=== PATIENT | male | born 2005 | race Caucasian/White ===

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

== ENCOUNTER 2024-01-06 05:47 | Day surgery (SDC) | payer OTHER ==
[~2024-01-06] VITALS: Ht 172.7 cm; Wt 79.7 kg
[2024-01-06] VITALS (11 sets, daily range): BP systolic 93–136; BP diastolic 61–93
[~2024-01-06 05:47] MED LIST changes: +AMOCLA875 PO; +INSULANPEN SC; +INSULIN AS100 UNIT/6
[2024-01-06] MEDS ORDERED: Ampicillin Sod/Sulbactam Sod 3 GM in NS 100 ML IV SCH (06:10)
[2024-01-06] MEDS ORDERED: Lactated Ringer's 1,000 ML IV SCH (06:10)
[2024-01-06] MEDS ORDERED: HUMALOG KW100 UNIT/1 SC (06:21)
[2024-01-06] MEDS ORDERED: IBUP200 PO (06:23)
[2024-01-06] MEDS ORDERED: Bupivacaine 0.5% HCl 5 MG/ML 30MLVIAL ONE (07:21)
[2024-01-06] MEDS ORDERED: propofoL 20 ML IV ONE (07:31)
[2024-01-06] MEDS ORDERED: Rocuronium Bromide 10 MG/ML 5ML Injection IV ONE ×2 (07:31→08:24)
[2024-01-06] MEDS ORDERED: Ketorolac Tromethamine 30mg Vial ONE (07:31)
[2024-01-06] MEDS ORDERED: Lidocaine HCl 2% 20 ML MDV ONE (07:31)
[2024-01-06] MEDS ORDERED: FentaNYL Citrate 50 MCG/ML 2 ML Injection ONE (07:31)
[2024-01-06] MEDS ORDERED: Ondansetron HCl 2 MG / ML 2ML Vial ONE (07:31)
[2024-01-06] MEDS ORDERED: FentaNYL Citrate 50 MCG/ML 2 ML Injection IV PRN (08:00)
[2024-01-06] MEDS ORDERED: Albuterol 2.5 MG/3 ML VIAL INH PRN (08:00)
[2024-01-06] MEDS ORDERED: HYDROmorphone HCl/Pf 1MG SYR IV PRN (08:05)
[2024-01-06] MEDS ORDERED: Droperidol 5 mg/2 ml Vial IV PRN (08:05)
[2024-01-06] MEDS ORDERED: HYDROmorphone HCl/Pf 1MG SYR ONE (08:45)
[2024-01-06] MEDS ORDERED: Sugammadex Sodium 200 MG/2ML SDV (100 MG/ML) ONE (09:06)
[2024-01-06] MEDS ORDERED: OxyCODONE 5 mg/Acetamin 325 mg TABLET PO PRN (09:50)
--- NOTE | 2024-01-06 10:33 | NUR ---
Patient up to Ambulate independently. Gait steady. VVS. ON RA. DRAIN SUCTIONED, DRAINING SEROUS FLUID. PT UNDERSTOOD DISCHARGE INSTRUCTIONS. SHOWED UNDERSTANDING OF OPERATION AND CARE FOR CHRIS DRAIN. EDUCATED FAMILY WELL. NO PAIN OR NAUSEA. Patient States Post-Procedure ride home has been arranged. BELONGINGS WITH PATIENT.
== END 2024-01-06 10:38 | disposition home or self-care (01) ==
LOC: ORSCMMR 05:47 → ORD 08:45 → ORSCMMR 10:38
PROVIDERS: Surgery
PROC: 0HX8XZZ Transfer Buttock Skin, External Approach (ICD-10-PCS; principal; 2024-01-06 07:30)
DX: L05.01 Pilonidal cyst with abscess (principal); E10.8 Type 1 diabetes mellitus with unspecified complications; Z79.4 Long term (current) use of insulin
CPT/HCPCS: 82947; 88304; J0295; J1170; J1885; J2405; J2704; J3010; J7120

== ENCOUNTER 2024-02-12 23:10 | Inpatient (IN) | payer OTHER ==
[~2024-02-12] VITALS: Ht 175.3 cm; Wt 77.1 kg
[~2024-02-12 23:10] MED LIST changes: +HUMALOG KW100 UNIT/1 SC; +IBUP200 PO
[2024-02-12] MEDS ORDERED: Lactated Ringer's 1,000 ML IV ONE (23:35)
[2024-02-12 23:39] LABS: BASOPHILS ABSOLUTE AUTO 0.07 K/mm3 (0.00-0.23); BASOPHILS PERCENT AUTO 0 % (0-2); EOSINOPHILS ABSOLUTE AUTO 0.01 K/mm3 (0.00-0.68); EOSINOPHILS PERCENT AUTO 0 % (0-6); Hematocrit 50.2 % (37.0-53.0); Hemoglobin 17.3 g/dL (13.5-17.5); IMMATURE GRAN PERCENT AUTO 1 % (0-1); LYMPHOCYTES ABSOLUTE AUTO 1.92 K/mm3 (0.84-5.20); LYMPHOCYTES PERCENT AUTO 10 % (21-46); MONOCYTES ABSOLUTE AUTO 0.76 K/mm3 (0.16-1.47); MONOCYTES PERCENT AUTO 4 % (4-13); Mean Corpuscular HGB 27.3 pg (26.0-34.0); Mean Corpuscular HGB Conc 34.5 g/dL (31.5-36.5); Mean Corpuscular Volume 79 fL (80-100); Mean Platelet Volume 9.2 fL (9.1-12.4); NEUTROPHILS ABSOLUTE AUTO 15.96 K/mm3 (1.96-9.15); NEUTROPHILS PERCENT AUTO 84 % (41-73); Platelet Count 401 K/mm3 (150-400); RDW Coefficient Variation 12.5 % (11.7-14.2); Red Blood Cell Count 6.34 M/mm3 (4.30-5.90); White Blood Cell Count 18.92 K/mm3 (4.00-11.30)
[2024-02-12] MEDS ORDERED: Acetaminophen 325 MG TABLET PO ONE (23:45)
[2024-02-12] MEDS ORDERED: Ondansetron HCl 2 MG / ML 2ML Vial IV ONE (23:55)
[2024-02-13] VITALS (22 sets, daily range): BP systolic 97–119; BP diastolic 43–73
[2024-02-13 00:09] LABS: Base Excess Venous -20.1 mmol/L; Bicarbonate Venous 11.6 mmol/L (24.0-30.0); PCO2 Venous 22.6 mmHg (38-42); pH Blood Venous 7.18 (7.34-7.37)
[2024-02-13 00:15] LABS: Albumin, Blood 4.8 g/dL (3.4-5.0); Albumin/Globulin Ratio 1.1 (0.8-1.8); Bun/Creatinine Ratio 18.2 (12.0-20.0); Calcium, Blood 9.5 mg/dL (8.5-10.1); Creatinine, Blood 0.99 mg/dL (0.60-1.20); Globulin, Blood 4.5 g/dL (2.2-4.0); Potassium, Blood 4.2 mmol/L (3.5-5.5); Total Protein, Blood 9.3 g/dL (6.4-8.2)
[2024-02-13] MEDS ORDERED: Lactated Ringer's 1,000 ML IV ONE (00:35)
[2024-02-13] MEDS ORDERED: D5W-1/2NS 1,000 ML IV SCH (01:30)
[2024-02-13] MEDS ORDERED: Insulin Human Regular 100 UNIT in NS 100 ML IV SCH (01:30)
[2024-02-13] MEDS ORDERED: Acetaminophen 325 MG TABLET PO PRN (01:35)
[2024-02-13] MEDS ORDERED: Prochlorperazine Edisylate 10 mg Vial IV PRN (01:35)
[2024-02-13] MEDS ORDERED: Potassium Chl 20MEQ/Water100ML 100 ML IV ONE (02:00)
[2024-02-13 04:04] LABS: BASOPHILS ABSOLUTE AUTO 0.05 K/mm3 (0.00-0.23); BASOPHILS PERCENT AUTO 0 % (0-2); EOSINOPHILS ABSOLUTE AUTO 0.03 K/mm3 (0.00-0.68); EOSINOPHILS PERCENT AUTO 0 % (0-6); Hematocrit 45.4 % (37.0-53.0); Hemoglobin 15.4 g/dL (13.5-17.5); IMMATURE GRAN ABSOLUTE AUTO 0.14 K/mm3 (0.00-0.10); IMMATURE GRAN PERCENT AUTO 1 % (0-1); LYMPHOCYTES ABSOLUTE AUTO 2.02 K/mm3 (0.84-5.20); LYMPHOCYTES PERCENT AUTO 13 % (21-46); MONOCYTES ABSOLUTE AUTO 0.46 K/mm3 (0.16-1.47); MONOCYTES PERCENT AUTO 3 % (4-13); Mean Corpuscular HGB 27.3 pg (26.0-34.0); Mean Corpuscular HGB Conc 33.9 g/dL (31.5-36.5); Mean Corpuscular Volume 81 fL (80-100); Mean Platelet Volume 9.3 fL (9.1-12.4); NEUTROPHILS ABSOLUTE AUTO 12.93 K/mm3 (1.96-9.15); NEUTROPHILS PERCENT AUTO 83 % (41-73); Platelet Count 342 K/mm3 (150-400); RDW Coefficient Variation 12.5 % (11.7-14.2); RDW Standard Deviation 36.2 fL (35.1-46.3); Red Blood Cell Count 5.64 M/mm3 (4.30-5.90); White Blood Cell Count 15.63 K/mm3 (4.00-11.30)
[2024-02-13 04:13] LABS: Base Excess Venous -21.4 mmol/L; Bicarbonate Venous 10.7 mmol/L (24.0-30.0); PCO2 Venous 24.8 mmHg (38-42); pH Blood Venous 7.12 (7.34-7.37)
[2024-02-13 05:35] LABS: Bun/Creatinine Ratio 15.6 (12.0-20.0); Calcium, Blood 8.3 mg/dL (8.5-10.1); Creatinine, Blood 0.84 mg/dL (0.60-1.20); Potassium, Blood 4.5 mmol/L (3.5-5.5)
--- NOTE | 2024-02-13 05:38 | NUR ---
SHIFT SUMMARY PT REMAINED ALERT AND ORIENTED X 4 T/O ENTIRETY OF SHIFT. ABLE TO FOLLOW COMMANDS, MAKE PURPOSEFUL MOVEMENTS, AND MAKE NEEDS KNOWN. AFEBRILE AND DENIES PAIN. CONTINOUS CARDIAC MONITORING IN PLACE SHOWING SR WITH HR IN 90'S, SBP 110'S-120'S. ON RA WITH SATURATIONS > 92%. UTILIZES BEDSIDE TOILET W/O DIFFICULTY, SBA TO GUIDE WIRES. INSULIN INFUSING AT 5 U/HR, D5 1/2NS AT 100. CARE CONTINUES.
[2024-02-13 06:06] LABS: pH Blood Venous 7.21 (7.34-7.37)
[2024-02-13 06:07] LABS: Base Excess Venous -18.3 mmol/L; Bicarbonate Venous 12.6 mmol/L (24.0-30.0); PCO2 Venous 24.3 mmHg (38-42)
[2024-02-13 08:16] LABS: Base Excess Venous -14.5 mmol/L; Bicarbonate Venous 14.6 mmol/L (24.0-30.0); PCO2 Venous 30.6 mmHg (38-42); pH Blood Venous 7.24 (7.34-7.37)
--- NOTE | 2024-02-13 08:30 | NUR ---
ASSUMED CARE / DR STROUD: REPORT RECEIVED FROM BHARTI Hartmann RN. ASSUMED CARE OF THIS PT AT APPROX 0700. ON ASSESSMENT, THE PT AWAKENS EASILY TO VERBAL STIMULI & IS ORIENTED TO ALL. TORRES, NO C/O WEAKNESS OR LIGHTHEADEDNESS. AMBULATORY IN ROOM & CALLS FOR ASSISTANCE APPROPRIATELY. ON RA WITH O2 SATS > 95%. MONITOR SHOWS SR-ST WITH HR 70-100s, INCREASED WITH EXERTION, BP STABLE. NO GI COMPLAINTS, VOIDS URINE WITHOUT DIFFICULTY. SKIN OVERALL INTACT, PT REPOSITIONS SELF PRN FOR COMFORT. DR STROUD AT BEDSIDE THIS AM TO EVAL PT. IVF RATE INCREASED TO 200 ML/HR. NOTIFY PROVIDER IF LABS IMPROVED OR WITH OTHER CHANGES. WILL CONTINUE TO MONITOR & UPDATE NEEDED.
[2024-02-13] MEDS ORDERED: Sennosides 8.6 MG Tab PO SCH (09:00)
[2024-02-13] MEDS ORDERED: Enoxaparin 40 MG/0.4 ML SYR SC SCH (09:00)
[2024-02-13] MEDS ORDERED: Docusate Sodium 100 MG Cap PO SCH (09:00)
[2024-02-13 11:38] LABS: Bun/Creatinine Ratio 12.9 (12.0-20.0); Calcium, Blood 8.4 mg/dL (8.5-10.1); Creatinine, Blood 0.78 mg/dL (0.60-1.20); Potassium, Blood 3.8 mmol/L (3.5-5.5)
[2024-02-13 15:49] LABS: Albumin, Blood 3.4 g/dL (3.4-5.0); Bilirubin, Total 1.6 mg/dL (0.1-1.0); Bun/Creatinine Ratio 9.9 (12.0-20.0); Calcium, Blood 8.6 mg/dL (8.5-10.1); Creatinine, Blood 0.81 mg/dL (0.60-1.20); Globulin, Blood 3.4 g/dL (2.2-4.0); Potassium, Blood 3.5 mmol/L (3.5-5.5); Total Protein, Blood 6.8 g/dL (6.4-8.2)
[2024-02-13] MEDS ORDERED: Potassium Chloride 20 MEQ TabCR PO ONE (16:10)
--- NOTE | 2024-02-13 17:25 | NUR ---
SHIFT SUMMARY: NO ACUTE CHANGES SINCE PRIOR UPDATES. PT REMAINS A&O TO ALL, PLEASANT & COOPERATIVE WITH CARE MEASURES. ON ROOM AIR WITH O2 SATS > 95%. MONITOR SHOWS SR W/ HR 60-80s, BP STABLE. NO GI COMPLAINTS, IS TOLERATING ICE CHIPS WELL. VOIDS URINE WITHOUT DIFFICULTY. SKIN CONDITION OVERALL INTACT, REPOSITIONS SELF PRN FOR COMFORT. WILL CONTINUE TO MONITOR & REPORT OFF TO ONCOMING RN.
[2024-02-13 19:59] LABS: Albumin, Blood 3.4 g/dL (3.4-5.0); Bilirubin, Total 1.6 mg/dL (0.1-1.0); Bun/Creatinine Ratio 8.5 (12.0-20.0); Calcium, Blood 8.4 mg/dL (8.5-10.1); Creatinine, Blood 0.71 mg/dL (0.60-1.20); Globulin, Blood 3.4 g/dL (2.2-4.0); Potassium, Blood 3.5 mmol/L (3.5-5.5); Total Protein, Blood 6.8 g/dL (6.4-8.2)
--- NOTE | 2024-02-13 20:55 | NUR ---
RESULTS OF CHEM7 CALLED TO DR. DILL WITH NEW ORDERS NOTED. CHEM7 ORDERED FOR 2300. PATIENT NOTIFIED TO STATUS.
[2024-02-13 23:26] LABS: Bun/Creatinine Ratio 6.4 (12.0-20.0); Calcium, Blood 8.4 mg/dL (8.5-10.1); Creatinine, Blood 0.79 mg/dL (0.60-1.20); Potassium, Blood 3.7 mmol/L (3.5-5.5)
--- NOTE | 2024-02-13 23:37 | NUR ---
ASSUMED CARE OF PATIENT, ON INSULIN DRIP WITH Q1 HOUR BLOOD SUGAR CHECKE. LAB DRAWN AND SENT FOR CHEM 7. RESULTS OF CHEM [address] DILL. NEW ORDERS NOTED.
[2024-02-14] VITALS (12 sets, daily range): BP systolic 100–122; BP diastolic 46–77
[2024-02-14 05:25] LABS: BASOPHILS ABSOLUTE AUTO 0.06 K/mm3 (0.00-0.23); BASOPHILS PERCENT AUTO 1 % (0-2); EOSINOPHILS ABSOLUTE AUTO 0.34 K/mm3 (0.00-0.68); EOSINOPHILS PERCENT AUTO 4 % (0-6); Hematocrit 39.8 % (37.0-53.0); Hemoglobin 13.8 g/dL (13.5-17.5); IMMATURE GRAN ABSOLUTE AUTO 0.04 K/mm3 (0.00-0.10); IMMATURE GRAN PERCENT AUTO 1 % (0-1); LYMPHOCYTES ABSOLUTE AUTO 3.19 K/mm3 (0.84-5.20); LYMPHOCYTES PERCENT AUTO 39 % (21-46); MONOCYTES ABSOLUTE AUTO 0.61 K/mm3 (0.16-1.47); MONOCYTES PERCENT AUTO 7 % (4-13); Mean Corpuscular HGB Conc 34.7 g/dL (31.5-36.5); Mean Corpuscular Volume 78 fL (80-100); Mean Platelet Volume 9.2 fL (9.1-12.4); NEUTROPHILS ABSOLUTE AUTO 3.97 K/mm3 (1.96-9.15); NEUTROPHILS PERCENT AUTO 48 % (41-73); Platelet Count 266 K/mm3 (150-400); RDW Coefficient Variation 12.6 % (11.7-14.2); RDW Standard Deviation 35.8 fL (35.1-46.3); Red Blood Cell Count 5.11 M/mm3 (4.30-5.90); White Blood Cell Count 8.21 K/mm3 (4.00-11.30)
[2024-02-14 05:52] LABS: Bun/Creatinine Ratio 7.2 (12.0-20.0); Calcium, Blood 8.5 mg/dL (8.5-10.1); Creatinine, Blood 0.69 mg/dL (0.60-1.20); Potassium, Blood 3.4 mmol/L (3.5-5.5)
--- NOTE | 2024-02-14 05:57 | NUR ---
INSULIN DRIP REMAINS AT 2 UNITS/HOUR. AWAITING RESULTS OF CHEM 7. NO NAUSEA/VOMITING NOTED THROUGHNOUT SHIFT.
--- NOTE | 2024-02-14 07:35 | NUR ---
ASSUMED CARE: REPORT RECEIVED FROM JOELLEN He RN. ASSUMED CARE OF THIS PT AT APPROX 0700. ON ASSESSMENT, THE PT IS AWAKE, ORIENTED TO ALL & AMBULATORY IN ROOM. USES CALL LIGHT APPROPRIATELY. PT ON ROOM AIR WITH O2 SATS > 96%. MONITOR SHOWS SR WITH HR 60-70s, BP STABLE. NPO WHILE ON INSULIN DRIP, STS FEELING APPETITE RETURNING & WOULD LIKE TO KNOW WHEN HE WILL BE ABLE TO EAT. NO BM SINCE ADMIT, AGREEABLE TO TAKING SCHEDULED BOWEL CARE MEDS THIS AM. VOIDS URINE WITHOUT DIFFICULTY. SKIN CONDITION OVERALL INTACT, PT REPOSITIONS SELF PRN FOR COMFORT. INSULIN & IVFs CONTINUE INFUSING, WILL REQUEST REPEAT LABS THIS AM. WILL CONTINUE TO MONITOR & UPDATE NEEDED.
[2024-02-14] MEDS ORDERED: Potassium Chloride 40 MEQ in NS 250 ML IV ONE (08:00)
[2024-02-14 11:59] LABS: Bun/Creatinine Ratio 4.3 (12.0-20.0); Calcium, Blood 8.6 mg/dL (8.5-10.1); Creatinine, Blood 0.71 mg/dL (0.60-1.20); Potassium, Blood 3.6 mmol/L (3.5-5.5)
[2024-02-14] MEDS ORDERED: Insulin Glargine-Yfgn 100 Unit/mL 3 ML SYR SC ONE (12:05)
--- NOTE | 2024-02-14 12:15 | NUR ---
DR STROUD: PROVIDER AT BEDSIDE TO NISHANT PT THIS AFTERNOON. UPDATED ON CURRENT LABS. HOME DOSE 37 UNITS INSULIN GLARGINE ORDERED TO BE GIVEN NOW. INSULIN DRIP & IVFs MAY BE DISCONTINUED AT LEAST ONE HOUR AFTER GLARGINE GIVEN. PT NOW OKAY TO HAVE CONSISTENT CARB DIET, ALL ORDERS PLACED. CHECK CBG Q1H x2 AFTER INSULIN DRIP DISCONTINUED & IF REMAINING STABLE, THE PT WILL DISCHARGE HOME THIS EVENING. NO OTHER CHANGES AT THIS TIME.
[2024-02-14] MEDS ORDERED: Colace100 MG PO (15:53)
[2024-02-14] MEDS ORDERED: Acetaminophen650 M1 PO (15:57)
--- NOTE | 2024-02-14 17:15 | NUR ---
DISCHARGE TO HOME: DR STROUD NOTIFIED OF PT's BLOOD GLUCOSE LEVELS AFTER INSULIN DRIP HAS REMAINED OFF FOR APPROX 2 HRS. SHE FEELS THAT THE PT IS OKAY TO BE DISCHARGED. EDUCATION HAS BEEN COMPLETED WITH THE PT & HIS MOM, JANET. THEY VERBALIZE UNDERSTANDING OF THE DISCHARGE EDUCATION & WILL RETURN TO THE ED IF SYMPTOMS OF DKA RETURN. THIS RN HAS REMOVED ALL MONITORS & IV ACCESS. THE PT HAS DRESSED HIMSELF & GATHERED ALL OF HIS BELONGINGS. HE HAS AMBULATED OUT OF THE UNIT AT APPROX 1715.
== END 2024-02-14 17:15 | disposition home or self-care (01) | DRG 639 ==
LOC: ER 23:10 → ICUE 23:11
PROVIDERS: Emergency Medicine; Internal Medicine; Nurse Practitioner Acute Care; Physician Assistant; Student in an Organized Health Care Education/Training Program; ADMIT Internal Medicine
DX: E10.10 Type 1 diabetes mellitus with ketoacidosis without coma (principal); D72.829 Elevated white blood cell count, unspecified; K59.00 Constipation, unspecified; R94.31 Abnormal electrocardiogram [ECG] [EKG]; E86.0 Dehydration; Z98.890 Other specified postprocedural states; Z79.899 Other long term (current) drug therapy; Z79.4 Long term (current) use of insulin
CPT/HCPCS: 36415; 80048; 80053; 82010; 82803; 82947; 83605; 85025; 93005; 93010; 96361; 96372; 96374; 96375; 99284-25; A9270; C1751; G0378; J1650; J1815; J2405; J3480; J7042; J7050; J7120

== ENCOUNTER 2024-07-25 12:25 | Emergency (ER) | payer OTHER ==
[~2024-07-25] VITALS: Ht 172.7 cm; Wt 81.7 kg
[~2024-07-25 12:25] MED LIST changes: +Acetaminophen650 M1 PO; +Colace100 MG PO
[2024-07-25 12:39] VITALS: BP 122/73
[2024-07-25] MEDS ORDERED: Acetaminophen 500 MG Tab PO ONE (13:15)
[2024-07-25 13:20] LABS: BASOPHILS ABSOLUTE AUTO 0.03 K/mm3 (0.00-0.23); BASOPHILS PERCENT AUTO 0 % (0-2); EOSINOPHILS ABSOLUTE AUTO 0.17 K/mm3 (0.00-0.68); EOSINOPHILS PERCENT AUTO 1 % (0-6); Hematocrit 43.1 % (37.0-53.0); Hemoglobin 15.3 g/dL (13.5-17.5); IMMATURE GRAN ABSOLUTE AUTO 0.08 K/mm3 (0.00-0.10); IMMATURE GRAN PERCENT AUTO 1 % (0-1); LYMPHOCYTES ABSOLUTE AUTO 1.64 K/mm3 (0.84-5.20); LYMPHOCYTES PERCENT AUTO 12 % (21-46); MONOCYTES ABSOLUTE AUTO 0.51 K/mm3 (0.16-1.47); MONOCYTES PERCENT AUTO 4 % (4-13); Mean Corpuscular HGB 27.5 pg (26.0-34.0); Mean Corpuscular HGB Conc 35.5 g/dL (31.5-36.5); Mean Corpuscular Volume 78 fL (80-100); Mean Platelet Volume 9.4 fL (9.1-12.4); NEUTROPHILS PERCENT AUTO 82 % (41-73); Platelet Count 301 K/mm3 (150-400); RDW Coefficient Variation 11.8 % (11.7-14.2); RDW Standard Deviation 32.5 fL (35.1-46.3); Red Blood Cell Count 5.56 M/mm3 (4.30-5.90); White Blood Cell Count 13.83 K/mm3 (4.00-11.30)
[2024-07-25 13:33] LABS: Albumin, Blood 3.5 g/dL (3.4-5.0); Albumin/Globulin Ratio 0.9 (0.8-1.8); Bilirubin, Total 0.5 mg/dL (0.1-1.0); Bun/Creatinine Ratio 23.4 (12.0-20.0); Calcium, Blood 8.9 mg/dL (8.5-10.1); Creatinine, Blood 0.69 mg/dL (0.60-1.20); Potassium, Blood 3.6 mmol/L (3.5-5.5); Total Protein, Blood 7.5 g/dL (6.4-8.2)
== END 2024-07-25 16:05 | disposition home or self-care (01) ==
LOC: ER 12:25
PROVIDERS: Emergency Medicine
DX: E10.649 Type 1 diabetes mellitus with hypoglycemia without coma (principal); R56.9 Unspecified convulsions; S09.90XA Unspecified injury of head, initial encounter; X58.XXXA Exposure to other specified factors, initial encounter
CPT/HCPCS: 80053; 82947; 85025; 99285; A9270